=== PATIENT | male | born 1975 ===

== ENCOUNTER 2021-07-30 08:42 | Day surgery (SDC) | payer OTHER | END 2021-07-30 13:50 | disposition home or self-care (01) | LOC: AMB-ENDOS 08:42 | PROVIDERS: ATTEND Surgery | DX: K62.89 Other specified diseases of anus and rectum (principal); K64.8 Other hemorrhoids ==

== ENCOUNTER 2021-11-27 06:00 | Day surgery (SDC) | payer OTHER ==
[2021-11-27] MEDS ORDERED: PERCOCET 5-3251 EACH PO (12:12)
== END 2021-11-27 15:45 | disposition home or self-care (01) ==
LOC: CIR.AMB 06:00 → EDBD 07:45 → CIR.AMB 08:45
PROVIDERS: ATTEND Surgery
DX: K60.3 Anal fistula (principal); K60.2 Anal fissure, unspecified

== ENCOUNTER 2022-04-09 06:50 | Day surgery (SDC) | payer OTHER ==
[~2022-04-09] VITALS: Ht 167.6 cm; Wt 73.5 kg
[~2022-04-09 06:50] MED LIST: PERCOCET 5-3251 EACH PO
[2022-04-09] MEDS ORDERED: PERCOCET 5-3251 EACH PO (14:02)
== END 2022-04-09 20:00 | disposition home or self-care (01) ==
LOC: CIR.AMB 06:50
PROVIDERS: ATTEND Surgery
DX: K60.3 Anal fistula (principal); K62.89 Other specified diseases of anus and rectum; K62.5 Hemorrhage of anus and rectum; K64.1 Second degree hemorrhoids; K60.1 Chronic anal fissure; Z20.822 Contact with and (suspected) exposure to COVID-19; Z87.891 Personal history of nicotine dependence